=== PATIENT | female | born 1960 | race American Indian/Alaskan Native ===

== ENCOUNTER 2016-06-22 11:22 | Emergency (ER) | payer MEDICARE, BC ==
[2016-06-22] MEDS ORDERED: CATAPRES PO ONE (14:33)
--- NOTE | 2016-06-22 15:13 | Cat Scan Report ---
FINAL REPORT PROCEDURE: CT HEAD/BRAIN WO CON TECHNIQUE: Computerized tomography of the head was performed without contrast material. HISTORY: headache, high blood pressure COMPARISON: No prior studies are available for comparison. FINDINGS: Visualized portions of the paranasal sinuses and mastoid air cells are clear. No calvarial fracture is seen. Cerebral ventricles are normal in size. No acute intracranial hemorrhage or mass effect is seen. No CVA is seen. IMPRESSION: No abnormalities are seen.
--- NOTE | 2016-06-22 16:05 | Emergency Department Report ---
HPI - General Chief Complaint: High BP Time Seen by Provider: 06/22/16 13:10 - HPI HPI: 56-year-old female presents today with elevated blood pressure level and associated headache. Patient states that the she's had had a headache times one week which worsened today. Positive for gradual onsets. Patient states that she has been out of her blood pressure medication for 1.5 weeks. Patient is currently taking losartan potassium 100 mg daily. Denies vision change, fever, chills, nausea, vomiting, chest pain, shortness of breath, abdominal pain. ED Past Medical Hx - Past Medical History Hx Hypertension: Yes - Surgical History Hx Cholecystectomy: Yes Additional Surgical History: HYSTERECTOMY / RIGHT ROTATOR CUFF - Social History Smoking Status: Never Smoker Substance Use Type: None - Medications Home Medications: Home Medications Medication Instructions Recorded Confirmed Last Taken Type HYDROcodone/APAP 5-325 [[place] 1 each PO Q6HR PRN #15 tablet 04/18/16 Unknown Rx 5/325] Losartan [Cozaar] 100 mg PO QDAY #30 tablet 06/22/16 Unknown Rx ED Review of Systems ROS: Stated complaint: HBP Other details as noted in HPI Constitutional: denies: chills, fever, malaise Eyes: denies: eye pain ENT: denies: ear pain, throat pain, congestion Respiratory: denies: cough, shortness of breath, wheezing Cardiovascular: denies: chest pain, palpitations Endocrine: no symptoms reported Gastrointestinal: denies: abdominal pain, nausea, vomiting Neurological: headache. denies: weakness Physical Exam - Physical Exam Vital Signs: Vital Signs 06/22/16 06/22/16 06/22/16 11:27 14:25 14:54 Temperature 99.0 F 98.7 F Pulse Rate 109 H 70 88 Respiratory 20 18 Rate Blood Pressure 177/103 169/121 Blood Pressure 169/121 [Right] O2 Sat by Pulse 100 99 Oximetry Physical Exam: GENERAL: The patient is well-developed and well-nourished. Patient is in NAD. HEAD: Normocephalic. Atraumatic. CHEST/LUNGS: Clear to auscultation throughout. HEART/CARDIOVASCULAR: Regular rate and rhythm. No murmurs, rubs or gallops. ABDOMEN: Abdomen is soft, nontender. Bowel sounds normoactive. No guarding or rebound tenderness. EXTREMITIES: Peripheral pulses intact. Capillary refill less than 2 seconds. NEURO: Alert and oriented 3, fluid speech, EOMs intact, normal facial sensation , strength exam 5/5 upper and lower extremities, GCS equals 15, finger to nose normal ED Course Vital Signs 06/22/16 06/22/16 06/22/16 11:27 14:25 14:54 Temperature 99.0 F 98.7 F Pulse Rate 109 H 70 88 Respiratory 20 18 Rate Blood Pressure 177/103 169/121 Blood Pressure 169/121 [Right] O2 Sat by Pulse 100 99 Oximetry ED Medical Decision Making - Lab Data Vital Signs 06/22/16 06/22/16 06/22/16 11:27 14:25 14:54 Temperature 99.0 F 98.7 F Pulse Rate 109 H 70 88 Respiratory 20 18 Rate Blood Pressure 177/103 169/121 Blood Pressure [Left] Blood Pressure 169/121 [Right] O2 Sat by Pulse 100 99 Oximetry 06/22/16 16:17 Temperature 98.7 F Pulse Rate 83 Respiratory 16 Rate Blood Pressure Blood Pressure 143/90 [Left] Blood Pressure [Right] O2 Sat by Pulse 96 Oximetry - Radiology Data Radiology results: report reviewed CT of head without contrast: Visualized portions of the paranasal sinuses and mastoid S also clear. No calvarial fracture is seen. Cerebral ventricles are normal in size. No acute intracranial hemorrhage or mass effect is seen. No CVA seen. - Medical Decision Making 56-year-old female presents today with elevated blood pressure levels and associated headache. Patient was given clonidine 0.2 mg and reported symptomatic relief. Her CT results are within normal limits. Patient is in no acute distress at this time. She will be discharged home and is encouraged to follow up with a primary care provider. She will be sent home on losartan and is encouraged to return to the emergency room for any worsening symptoms. Critical care attestation.: If time is entered above; I have spent that time in minutes in the direct care of this critically ill patient, excluding procedure time. ED Disposition Clinical Impression: HTN (hypertension) Qualifiers: Hypertension type: essential hypertension Qualified Code(s): I10 - Essential ( primary) hypertension Headache Qualifiers: Headache type: unspecified Headache chronicity pattern: acute headache Intractability: not intractable Qualified Code(s): R51 - Headache Disposition: DISCHARGED TO HOME OR SELFCARE Is pt being admited?: No Does the pt Need Aspirin: No Condition: Stable Instructions: Hypertension (ED), Acute Headache (ED) Additional Instructions: Follow-up with primary care provider. Return to the emergency department if symptoms worsen. Prescriptions: Losartan [Cozaar] 100 mg PO QDAY #30 tablet Referrals: PRIMARY CARE, [Primary Care Provider] - 3-5 Days [facility] [Outside] - 3-5 Days Forms: Work/School Release Form(ED) Time of Disposition: 16:21
[2016-06-22 16:18] VITALS: BP 143/90
== END 2016-06-22 16:30 | disposition home or self-care (01) ==
LOC: ED 11:22
DX: I10 Essential (primary) hypertension (principal); R51 Headache; Z90.49 Acquired absence of other specified parts of digestive tract; Z90.710 Acquired absence of both cervix and uterus
CPT/HCPCS: 70450

== ENCOUNTER 2017-07-31 15:51 | Inpatient (IN) | payer BC, MEDICARE ==
[2017-07-31 16:46] LABS: Basophils # (Auto) 0.1 K/mm3 (0.0-0.1); Basophils % (Auto) 0.5 % (0.0-1.8); Hematocrit 43.1 % (30.3-42.9); Hemoglobin 14.2 gm/dl (10.1-14.3); Lymphocytes # (Auto) 1.9 K/mm3 (1.2-5.4); Lymphocytes % (Auto) 15.1 % (13.4-35.0); Mean Corpuscular HGB Conc 33 % (30-34); Mean Corpuscular Hemoglobin 28 pg (28-32); Mean Corpuscular Volume 84 fl (79-97); Monocytes # (Auto) 0.3 K/mm3 (0.0-0.8); Monocytes % (Auto) 2.2 % (0.0-7.3); Platelet Count 472 K/mm3 (140-440); Red Blood Count 5.15 M/mm3 (3.65-5.03); Red Cell Distribution Width 15.3 % (13.2-15.2)
[2017-07-31 17:05] LABS: Alanine Aminotransferase 8 units/L (7-56); Albumin 4.2 g/dL (3.9-5); BUN/Creatinine Ratio 10; Blood Urea Nitrogen 8 mg/dL (7-17); Calcium 10.1 mg/dL (8.4-10.2); Hemolysis Index 14; Lipase 15 units/L (13-60)
[2017-07-31] MEDS ORDERED: ZOFRAN IV ONE ×2 (17:37→21:24)
[2017-07-31] MEDS ORDERED: DILAUDID IV ONE ×2 (17:37→20:22)
[2017-07-31] MEDS ORDERED: NACL 0.9% 1000 ML 1,000 ML IV ONE ×2 (17:37→17:38)
--- NOTE | 2017-07-31 18:31 | Emergency Department Report ---
ED Abdominal Pain HPI - General Chief Complaint: Abdominal Pain Stated Complaint: NAUSEA/VOMITING/DIARRHEA Time Seen by Provider: 07/31/17 17:32 Source: patient Mode of arrival: Wheelchair Limitations: No Limitations - History of Present Illness Initial Comments: 57-year-old female with a past medical history hypertension, Crohn's disease, previous hysterectomy and cholecystectomy presents to the hospital with complaints of abdominal pain, nausea, and diarrhea that started about 5 AM this morning. Patient's complains of severe generalized cramping abdominal pain is with palpation. No alleviating factors. Approximately 6-7 episodes of vomiting and 12 episodes of diarrhea reported since symptom onset. The patient denies melena, hematochezia, hematemesis, melena, recent travel, sick contacts, or recent antibiotic use. She is not taking any Crohn specific medication. Patient has had several hospitalizations for Crohn's disease and did follow-up with the GI doctor one time. Pt's GI evaluation was 2 years ago status post colonoscopy the patient did not follow-up nor was she contacted regarding results to her understanding she thinks results were "okay". Severity scale (0 -10): 10 - Related Data Previous Rx's Medication Instructions Recorded Last Taken Type HYDROcodone/APAP 5-325 [[place] 1 each PO Q6HR PRN #15 tablet 04/18/16 Unknown Rx 5/325] Losartan [Cozaar] 100 mg PO QDAY #30 tablet 06/22/16 Unknown Rx Allergies Allergy/AdvReac Type Severity Reaction Status Date / Time acetaminophen [From Lortab] Allergy Vomiting Verified 06/22/16 11:27 hydrocodone bitartrate Allergy Vomiting Verified 06/22/16 11:27 [From Lortab] tramadol Allergy Shortness Verified 06/22/16 11:27 of Breath ED Review of Systems ROS: Stated complaint: NAUSEA/VOMITING/DIARRHEA Other details as noted in HPI Comment: All other systems reviewed and negative Other: Constitutional: No fevers chills or weight loss Eyes: No eye pain visual changes or discharge ENT: No ear pain or throat pain Neck: Denies pain Respiratory: Denies cough wheezing shortness of breath Cardiovascular: Denies chest pain, palpitations, syncope GI: As per HPI : Denies dysuria Musculoskeletal: Denies back pain, joint swelling Skin: Denies rash, lesions, erythema Neurologic: Denies headache, numbness, weakness Psychiatric: Denies suicidal ideation, hallucinations ED Past Medical Hx - Past Medical History Hx Hypertension: Yes Additional medical history: CHRON'S - Surgical History Hx Cholecystectomy: Yes Additional Surgical History: HYSTERECTOMY / RIGHT ROTATOR CUFF - Social History Smoking Status: Never Smoker Substance Use Type: None - Medications Home Medications: Home Medications Medication Instructions Recorded Confirmed Last Taken Type HYDROcodone/APAP 5-325 [[place] 1 each PO Q6HR PRN #15 tablet 04/18/16 Unknown Rx 5/325] Losartan [Cozaar] 100 mg PO QDAY #30 tablet 06/22/16 Unknown Rx ED Physical Exam - General Limitations: No Limitations - Other Other exam information: General: No limitations, mild distress secondary to pain Head exam: Atraumatic, normocephalic Eyes exam: Normal appearance, nonicteric sclera ENT: Moist mucous membrane, normal oropharynx Neck exam: Normal inspection, full range of motion, no meningismus nontender Respiratory exam: Clear to auscultation bilateral, no wheezes, rales, crackles Cardiovascular: Tachycardic regular rhythm Abdomen: Soft, nondistended, generalized abdominal tenderness, no bowel sounds, no rebound or guarding Extremity: Full range of motion normal inspection no deformity Back: Normal Inspection, full range of motion, no tenderness Neurologic: Alert, oriented x3, cranial nerves intact, no motor or sensory deficit Psychiatric: normal affect, normal mood Skin: Warm, dry, intact ED Course Vital Signs 07/31/17 07/31/17 16:27 20:22 Temperature 98.5 F Pulse Rate 126 H 89 Respiratory 20 20 Rate Blood Pressure 144/103 Blood Pressure 168/91 [Left] O2 Sat by Pulse 99 100 Oximetry - Reevaluation(s) Reevaluation #1: 07/31/17 18:[address] at this time 07/31/17 20:59 Pain improving after second dose of Dilaudid - Consultations Consultation #1: 07/31/17 20:[address] Parks (GI) he recommend Cipro, Flagyl, Solu-Medrol, and omeprazole (PPI). will consult ED Medical Decision Making - Lab Data Result diagrams: 07/31/17 16:34 07/31/17 16:34 Lab Results 07/31/17 07/31/17 Range/Units 16:34 16:34 WBC 12.8 H (4.5-11.0) K/mm3 RBC 5.15 H (3.65-5.03) M/mm3 Hgb 14.2 (10.1-14.3) gm/dl Hct 43.1 H (30.3-42.9) % MCV 84 (79-97) fl MCH 28 (28-32) pg MCHC 33 (30-34) % RDW 15.3 H (13.2-15.2) % Plt Count 472 H (140-440) K/mm3 Lymph % (Auto) 15.1 (13.4-35.0) % [place] % (Auto) 2.2 (0.0-7.3) % Eos % (Auto) 0.0 (0.0-4.3) % Baso % (Auto) 0.5 (0.0-1.8) % Lymph # 1.9 (1.2-5.4) K/mm3 [place] # 0.3 (0.0-0.8) K/mm3 Eos # 0.0 (0.0-0.4) K/mm3 Baso # 0.1 (0.0-0.1) K/mm3 Seg Neutrophils % 82.2 H (40.0-70.0) % Seg Neutrophils # 10.5 H (1.8-7.7) K/mm3 Sodium 141 (137-145) mmol/L Potassium 3.8 (3.6-5.0) mmol/L Chloride 100.7 (98-107) mmol/L Carbon Dioxide 23 (22-30) mmol/L Anion Gap 21 mmol/L BUN 8 (7-17) mg/dL Creatinine 0.8 (0.7-1.2) mg/dL Estimated GFR > 60 ml/min BUN/Creatinine Ratio 10 % Glucose 122 H (65-100) mg/dL Calcium 10.1 (8.4-10.2) mg/dL Total Bilirubin 0.30 (0.1-1.2) mg/dL AST 12 (5-40) units/L ALT 8 (7-56) units/L Alkaline Phosphatase 101 (35-129) units/L Total Protein 8.3 H (6.3-8.2) g/dL Albumin 4.2 (3.9-5) g/dL Albumin/Globulin Ratio 1.0 % Lipase 15 (13-60) units/L - Radiology Data Radiology results: report reviewed CT abdomen and pelvis IV contrast: Diffuse wall thickening of the distal half of small bowel and ascending colon as well as the distal stomach in the region of the pylorus. Findings likely consistent with known history of Crohn's disease - Medical Decision Making Patient likely had a Crohn's exacerbation as well as gastroenteritis. Case discussed with GI care coordination manager. Meds ordered as recommended. Stool culture is ordered and pending as recommended. He is a patient has not had a GI evaluation at least 2 years is not currently on any specific Crohn's related medication. Patient will be admitted for stabilization of symptoms and GI evaluation. Tachycardia improved with decreased pain and IV fluids - Differential Diagnosis Crohn's flare, gastroenteritis, pancreatitis, hepatitis, obstruction Critical Care Time: No Critical care attestation.: If time is entered above; I have spent that time in minutes in the direct care of this critically ill patient, excluding procedure time. ED Disposition Clinical Impression: Exacerbation of Crohn's disease, Gastroenteritis Disposition: OP ADMIT IP TO THIS HOSP Is pt being admited?: Yes Condition: Stable Time of Disposition: 21:02 (Hospitalist/Mariela)
--- NOTE | 2017-07-31 20:24 | Cat Scan Report ---
FINAL REPORT EXAM: CT ABDOMEN PELVIS W CON HISTORY: n,v,d Crohn's TECHNIQUE: Standard enhanced CT of the abdomen and pelvis. Coronal and sagittal reconstruction was also performed. Delayed imaging through the kidneys and bladder was obtained. Contrast: Intravenous contrast given PRIORS: None. FINDINGS: There is diffuse wall thickening of the distal half of the small bowel as well as the ascending colon. Minimal stranding in the adjacent fat is seen. There is also a small amount of wall thickening of the distal stomach in the region of the pylorus. However, there are small areas of low-density ascites interspersed among small bowel loops and around the liver and dependent pelvis. These findings are likely consistent with the patient's known history of Crohn's disease. Within the abdomen, the liver, spleen, pancreas, adrenal glands, and kidneys are unremarkable. Gallbladder has been surgically removed. No evidence for retroperitoneal or pelvic lymphadenopathy is seen. No soft tissue mass, the loculated fluid collection, or free air is seen within the abdomen or pelvis. The appendix is normal. Within the pelvis, the bladder is unremarkable. The uterus has been surgically removed. No evidence for mass or lymphadenopathy is seen in the pelvis. Images through the upper abdomen include the lung bases which are expanded and clear. Bony structures show no focal abnormalities and are intact. IMPRESSION: 1. Diffuse wall thickening of the distal half of the small bowel and ascending colon as well as the distal stomach in the region of the pylorus. Findings are likely consistent with the known history of Crohn's disease.
[2017-07-31] MEDS ORDERED: LEVAQUIN 750MG/150ML 750 MG/150 ML BAG IV ONE (20:52)
[2017-07-31] MEDS ORDERED: PROTONIX IV ONE (20:53)
[2017-07-31] MEDS ORDERED: FLAGYL 500 MG/100 ML 500 MG/100 ML BAG IV SCH (21:00)
[2017-07-31] MEDS ORDERED: ZOFRAN ONE (21:24)
[2017-07-31] MEDS: DILAUDID IV PRN (23:21)
[2017-07-31] MEDS: NACL 0.9% 1000 ML 1,000 ML IV SCH (23:21)
[2017-08-01] MEDS: DILAUDID IV PRN ×5 (04:03→20:54)
[2017-08-01] MEDS: ZOFRAN IV PRN ×3 (04:03→17:43)
[2017-08-01] MEDS: FLAGYL 500 MG/100 ML 500 MG/100 ML BAG IV SCH ×3 (06:46→21:02)
[2017-08-01] MEDS: LEVAQUIN 750MG/150ML 750 MG/150 ML BAG IV SCH (09:40)
[2017-08-01] MEDS: COZAAR PO SCH (09:41)
[2017-08-01] MEDS: PEPCID IV SCH ×2 (09:41→21:01)
[2017-08-01] MEDS: NACL 0.9% 1000 ML 1,000 ML IV SCH ×2 (09:42→20:04)
[2017-08-01 09:50] LABS: Bilirubin,Urine NEG (Negative); Blood,Urine SM (Negative); Color,Urine Yellow (Yellow); Mucus,Urine 3+ /HPF; Protein,Urine <15 mg/dL mg/dL (Negative); Urobilinogen,Urine < 2.0 mg/dL (<2.0)
[2017-08-01] MEDS ORDERED: PROTONIX IV SCH (10:00)
[2017-08-01] MEDS ORDERED: NON-FORMULARY (Losartan [Cozaar] 100 MG) PO SCH (10:00)
--- NOTE | 2017-08-01 10:56 | Progress Note ---
Assessment and Plan Assessment and plan: Crohn's exacerbation. CT scan of the abdomen reveals diffuse wall thickening of the distal half of the small bowel and ascending colon as well as the distal stomach in the region of the pylorus. Findings are consistent with Crohn's disease. Continue with steroids. GI consultation pending. Abdominal pain. Etiology secondary to above. Gastroenteritis. Continue antibiotics. Sepsis. Present on admission. Etiology secondary to above. Follow culture results. Hypertension. Resume anti-hypertensive medications. History Interval history: Patient complains of epigastric discomfort. Diarrhea and vomiting have resolved. Hospitalist Physical - Constitutional Vitals: Temp Pulse Resp BP Pulse Ox 98.6 F 82 18 140/80 100 08/01/17 00:39 08/01/17 09:41 08/01/17 08:50 08/01/17 09:41 08/01/17 00:39 General appearance: Present: no acute distress, well-nourished - EENT Eyes: Present: PERRL, EOM intact ENT: hearing intact, clear oral mucosa, dentition normal - Neck Neck: Present: supple, normal ROM - Respiratory Respiratory effort: normal Respiratory: bilateral: CTA - Cardiovascular Rhythm: regular Heart Sounds: Present: S1 & S2. Absent: gallop, rub - Extremities Extremities: no ischemia, No edema, Full ROM - Abdominal General gastrointestinal: soft, tender, non-distended, normal bowel sounds Localized gastrointestinal: tender: epigastric periumbilical (mild) - Integumentary Integumentary: Present: clear, warm, dry - Neurologic Neurologic: CNII-XII intact, moves all extremities Results - Labs CBC & Chem 7: 07/31/17 16:34 07/31/17 16:34 Labs: Laboratory Last Values WBC 12.8 K/mm3 (4.5-11.0) H 07/31/17 16:34 RBC 5.15 M/mm3 (3.65-5.03) H 07/31/17 16:34 Hgb 14.2 gm/dl (10.1-14.3) 07/31/17 16:34 Hct 43.1 % (30.3-42.9) H 07/31/17 16:34 MCV 84 fl (79-97) 07/31/17 16:34 MCH 28 pg (28-32) 07/31/17 16:34 MCHC 33 % (30-34) 07/31/17 16:34 RDW 15.3 % (13.2-15.2) H 07/31/17 16:34 Plt Count 472 K/mm3 (140-440) H 07/31/17 16:34 Lymph % (Auto) 15.1 % (13.4-35.0) 07/31/17 16:34 [place] % (Auto) 2.2 % (0.0-7.3) 07/31/17 16:34 Eos % (Auto) 0.0 % (0.0-4.3) 07/31/17 16:34 Baso % (Auto) 0.5 % (0.0-1.8) 07/31/17 16:34 Lymph # 1.9 K/mm3 (1.2-5.4) 07/31/17 16:34 [place] # 0.3 K/mm3 (0.0-0.8) 07/31/17 16:34 Eos # 0.0 K/mm3 (0.0-0.4) 07/31/17 16:34 Baso # 0.1 K/mm3 (0.0-0.1) 07/31/17 16:34 Seg Neutrophils % 82.2 % (40.0-70.0) H 07/31/17 16:34 Seg Neutrophils # 10.5 K/mm3 (1.8-7.7) H 07/31/17 16:34 Sodium 141 mmol/L (137-145) 07/31/17 16:34 Potassium 3.8 mmol/L (3.6-5.0) 07/31/17 16:34 Chloride 100.7 mmol/L (98-107) 07/31/17 16:34 Carbon Dioxide 23 mmol/L (22-30) 07/31/17 16:34 Anion Gap 21 mmol/L 07/31/17 16:34 BUN 8 mg/dL (7-17) 07/31/17 16:34 Creatinine 0.8 mg/dL (0.7-1.2) 07/31/17 16:34 Estimated GFR > 60 ml/min 07/31/17 16:34 BUN/Creatinine Ratio 10 % 07/31/17 16:34 Glucose 122 mg/dL (65-100) H 07/31/17 16:34 Calcium 10.1 mg/dL (8.4-10.2) 07/31/17 16:34 Total Bilirubin 0.30 mg/dL (0.1-1.2) 07/31/17 16:34 AST 12 units/L (5-40) 07/31/17 16:34 ALT 8 units/L (7-56) 07/31/17 16:34 Alkaline Phosphatase 101 units/L (35-129) 07/31/17 16:34 Total Protein 8.3 g/dL (6.3-8.2) H 07/31/17 16:34 Albumin 4.2 g/dL (3.9-5) 07/31/17 16:34 Albumin/Globulin Ratio 1.0 % 07/31/17 16:34 Lipase 15 units/L (13-60) 07/31/17 16:34 Urine Color Yellow (Yellow) 08/01/17 09:33 Urine Turbidity Clear (Clear) 08/01/17 09:33 Urine pH 5.0 (5.0-7.0) 08/01/17 09:33 Ur Specific [place] 1.060 (1.003-1.030) H 08/01/17 09:33 Urine Protein <15 mg/dl mg/dL (Negative) 08/01/17 09:33 Urine Glucose (UA) Neg mg/dL (Negative) 08/01/17 09:33 Urine Ketones Neg mg/dL (Negative) 08/01/17 09:33 Urine Blood Sm (Negative) 08/01/17 09:33 Urine Nitrite Neg (Negative) 08/01/17 09:33 Urine Bilirubin Neg (Negative) 08/01/17 09:33 Urine Urobilinogen < 2.0 mg/dL (<2.0) 08/01/17 09:33 Ur Leukocyte Esterase Neg (Negative) 08/01/17 09:33 Urine WBC (Auto) 1.0 /HPF (0.0-6.0) 08/01/17 09:33 Urine RBC (Auto) 3.0 /HPF (0.0-6.0) 08/01/17 09:33 U Epithel Cells (Auto) 5.0 /HPF (0-13.0) 08/01/17 09:33 Urine Mucus 3+ /HPF 08/01/17 09:33
[2017-08-01] MEDS ORDERED: Fluarix Quad 2017-2018(36 MOS+ IM ONE (12:00)
--- NOTE | 2017-08-01 16:53 | Consultation ---
History of Present Illness - Reason for Consult Consult date: 08/01/17 enteritis - History of Present Illness See Dictated note. Medications and Allergies Allergies Allergy/AdvReac Type Severity Reaction Status Date / Time acetaminophen [From Lortab] Allergy Vomiting Verified 06/22/16 11:27 hydrocodone bitartrate Allergy Vomiting Verified 06/22/16 11:27 [From Lortab] tramadol Allergy Shortness Verified 06/22/16 11:27 of Breath Home Medications Medication Instructions Recorded Confirmed Last Taken Type HYDROcodone/APAP 5-325 [[place] 1 each PO Q6HR PRN #15 tablet 04/18/16 Unknown Rx 5/325] Losartan [Cozaar] 100 mg PO QDAY #30 tablet 06/22/16 08/01/17 07/30/17 07:00 Rx 100 Active Meds: Active Medications Famotidine (Pepcid) 20 mg IV BID [facility] Last Admin: 08/01/17 09:41 Dose: 20 mg Hydromorphone HCl (Dilaudid) 1 mg IV Q4H PRN PRN Reason: Pain , Severe (7-10) Last Admin: 08/01/17 16:43 Dose: 1 mg Levofloxacin/Dextrose (Levaquin 750mg/150ml) 750 mg in 150 mls @ 100 mls/hr IV DAILY [facility] Last Admin: 08/01/17 09:40 Dose: 100 mls/hr Metronidazole (Flagyl 500 Mg/100 Ml) 500 mg in 100 mls @ 100 mls/hr IV Q8HR [facility] Last Admin: 08/01/17 14:14 Dose: 100 mls/hr Sodium Chloride (Nacl 0.9% 1000 Ml) 1,000 mls @ 125 mls/hr IV DIRECT [facility] Last Admin: 08/01/17 09:42 Dose: 125 mls/hr Losartan Potassium (Cozaar) 100 mg PO QDAY [facility] Last Admin: 08/01/17 09:41 Dose: 100 mg Methylprednisolone Sodium Succinate (Solu-Medrol) 60 mg IV Q6H [facility] Last Admin: 08/01/17 09:40 Dose: 60 mg Ondansetron HCl (Zofran) 4 mg IV Q6H PRN PRN Reason: Nausea And Vomiting Last Admin: 08/01/17 10:27 Dose: 4 mg Exam - Constitutional Vitals: Temp Pulse Resp BP Pulse Ox 98.6 F 82 18 140/80 100 08/01/17 00:39 08/01/17 09:41 08/01/17 16:43 08/01/17 09:41 08/01/17 00:39 Results - Labs CBC & Chem 7: 07/31/17 16:34 07/31/17 16:34 Labs: Abnormal lab results 07/31/17 08/01/17 Range/Units 16:34 09:33 Glucose 122 H (65-100) mg/dL Total Protein 8.3 H (6.3-8.2) g/dL Ur Specific [place] 1.060 H (1.003-1.030) Assessment and Plan Pt with acute onset N/V/D, and abnormal CT. No clear hx of IBD. Labs essentially normal, with no anemia. Imp - Infectious process Rec - check stool studies, empiric abx, and discharge when stable, with outpatient follow up.
--- NOTE | 2017-08-01 21:37 | Consultation ---
REFERRING PHYSICIAN: Adam Araiza MD. REASON FOR CONSULTATION: Enteritis. HISTORY OF PRESENT ILLNESS: The patient is a 57-year-old woman who is retired early from the [employer] after a shoulder surgery. She was in her usual state of health until yesterday morning when she developed acute onset of nausea, vomiting and diarrhea. She had multiple loose watery bowel movements with no blood. Because of these symptoms that persisted, she presented to the Emergency Room. Here, she had a CT scan which showed thickening of the distal half of her small bowel as well as thickening of the ascending colon. Because of this, she was admitted for further evaluation. She has ongoing intermittent abdominal pain for which she is taking pain meds on a regular basis in the hospital. She denies GI bleeding. There have been no fevers, chills, or sweats. Prior to this, the patient states she did have some sort of colitis or GI problem in 2014. I was able to get data from 05/26/2014 from our records, where we have a biopsy results on an upper and lower endoscopy, which showed acute colitis. She was then seen in the office by Dr. Siddiqui; and on 01/15/2015, she underwent repeat colonoscopy for chronic diarrhea. This was normal to the terminal ileum, with normal biopsies as well. She was not seen in followup since then. We also have records from 1997 and 2000, where the patient was complaining of GERD. The patient states that she has 2-3 bowel movements a day and has urgency to the point of incontinence occurring about twice a month. She states that she has lost 60 or more pounds over the last year. This has been involuntary. However, usually she does not have problems with abdominal pain, nausea or vomiting. There has been no GI bleeding. PAST MEDICAL HISTORY: ALLERGIES: She is allergic to TRAMADOL AND HYDROCODONE. MEDICATIONS: She is at home on losartan and [place]. PAST MEDICAL HISTORY: She has a history of, 1. Hypertension. 2. Shoulder surgery. 3. Cholecystectomy. 4. Hysterectomy. FAMILY HISTORY: Noncontributory. SOCIAL HISTORY: Negative for tobacco or ethanol usage. REVIEW OF SYSTEMS: Negative except as noted above. PHYSICAL EXAMINATION: VITAL SIGNS: Temperature is 98.6 and her pulse is 82, blood pressure 140/80. HEENT: She is anicteric. Pupils are round and reactive. Oropharynx is clear. LUNGS: Clear bilaterally to auscultation. CARDIOVASCULAR: Regular with no extra heart sounds. ABDOMEN: Soft with good bowel sounds and no organomegaly or significant tenderness to deep palpation. RECTAL: Deferred. EXTREMITIES: Reveal no edema. LABORATORY DATA: White count is 12.8, hemoglobin 14.2, hematocrit 43.1, MCV of 84, platelet count of 472,000. Sodium 141, potassium 3.8, chloride 101, bicarbonate 23, BUN 8, creatinine 0.8, glucose 122, AST is 12, ALT is 8, alkaline phosphatase is 101, total bilirubin is 0.3, albumin is 4.2. IMAGING DATA: CT is as noted in history of present illness. There is minimal stranding noted in the adjacent fat to the wall thickened areas of the intestine. Also, there is some thickening of the distal stomach in the region of the pylorus. The wall thickening is diffuse. IMPRESSION: 1. Abdominal pain, nausea, vomiting, diarrhea -- these symptoms are most consistent with an acute infectious process. I would treat her empirically with antibiotics and check stool studies. I do not believe these findings are necessarily consistent with inflammatory bowel disease given the acuity of onset. 2. Abnormal CT scan -- this may be an acute infectious process versus a more chronic process such as an infiltrative disease or inflammation. Inflammatory bowel disease is certainly a consideration, but the patient's history is not necessarily consistent with this. I would treat her empirically with antibiotics, and do followup imaging after several weeks to allow resolution of any acute process. Subsequently, evaluation with either endoscopy or other modalities would be appropriate to further elucidate the disease process. 3. Chronic diarrhea -- I suspect that the patient has bile salt mediated diarrhea since her bowel movement changes started after her gallbladder surgery. After the inflammatory or infectious process has been evaluated, a trial of Questran or Welchol would be appropriate. JOB# [id number] HRC/NTS
[2017-08-02] MEDS: DILAUDID IV PRN ×6 (00:38→21:51)
[2017-08-02] MEDS: ZOFRAN IV PRN ×3 (00:39→21:07)
[2017-08-02] MEDS: NACL 0.9% 1000 ML 1,000 ML IV SCH ×2 (04:59→15:29)
[2017-08-02] MEDS: FLAGYL 500 MG/100 ML 500 MG/100 ML BAG IV SCH ×3 (05:00→21:15)
[2017-08-02] MEDS: PEPCID IV SCH ×2 (09:11→21:15)
[2017-08-02] MEDS: LEVAQUIN 750MG/150ML 750 MG/150 ML BAG IV SCH (09:12)
[2017-08-02] MEDS: COZAAR PO SCH (09:13)
--- NOTE | 2017-08-02 10:24 | Progress Note ---
Assessment and Plan Assessment and plan: Gastroenteritis. Continue antibiotics. GI following. Follow up stool studies. Crohn's disease. Continue IV steroids for potential acute flare/exacerbation. Sepsis. Present on admission. Etiology secondary to above. Follow culture results. Hypertension. Continue anti-hypertensive medications. History Interval history: Patient reports her abdominal discomfort has improved. No nausea or vomiting. Hospitalist Physical - Constitutional Vitals: Temp Pulse Resp BP Pulse Ox 98.2 F 77 18 171/96 100 08/02/17 08:01 08/02/17 08:01 08/02/17 08:01 08/02/17 09:13 08/02/17 08:01 General appearance: Present: no acute distress, well-nourished - EENT Eyes: Present: PERRL, EOM intact ENT: hearing intact, clear oral mucosa, dentition normal - Neck Neck: Present: supple, normal ROM - Respiratory Respiratory effort: normal Respiratory: bilateral: CTA - Cardiovascular Rhythm: regular Heart Sounds: Present: S1 & S2. Absent: gallop, rub - Extremities Extremities: no ischemia, No edema, Full ROM - Abdominal General gastrointestinal: soft, non-tender, non-distended, normal bowel sounds - Integumentary Integumentary: Present: clear, warm, dry - Neurologic Neurologic: CNII-XII intact, moves all extremities Results - Labs CBC & Chem 7: 07/31/17 16:34 07/31/17 16:34 Labs: Laboratory Last Values WBC 12.8 K/mm3 (4.5-11.0) H 07/31/17 16:34 RBC 5.15 M/mm3 (3.65-5.03) H 07/31/17 16:34 Hgb 14.2 gm/dl (10.1-14.3) 07/31/17 16:34 Hct 43.1 % (30.3-42.9) H 07/31/17 16:34 MCV 84 fl (79-97) 07/31/17 16:34 MCH 28 pg (28-32) 07/31/17 16:34 MCHC 33 % (30-34) 07/31/17 16:34 RDW 15.3 % (13.2-15.2) H 07/31/17 16:34 Plt Count 472 K/mm3 (140-440) H 07/31/17 16:34 Lymph % (Auto) 15.1 % (13.4-35.0) 07/31/17 16:34 [place] % (Auto) 2.2 % (0.0-7.3) 07/31/17 16:34 Eos % (Auto) 0.0 % (0.0-4.3) 07/31/17 16:34 Baso % (Auto) 0.5 % (0.0-1.8) 07/31/17 16:34 Lymph # 1.9 K/mm3 (1.2-5.4) 07/31/17 16:34 [place] # 0.3 K/mm3 (0.0-0.8) 07/31/17 16:34 Eos # 0.0 K/mm3 (0.0-0.4) 07/31/17 16:34 Baso # 0.1 K/mm3 (0.0-0.1) 07/31/17 16:34 Seg Neutrophils % 82.2 % (40.0-70.0) H 07/31/17 16:34 Seg Neutrophils # 10.5 K/mm3 (1.8-7.7) H 07/31/17 16:34 Sodium 141 mmol/L (137-145) 07/31/17 16:34 Potassium 3.8 mmol/L (3.6-5.0) 07/31/17 16:34 Chloride 100.7 mmol/L (98-107) 07/31/17 16:34 Carbon Dioxide 23 mmol/L (22-30) 07/31/17 16:34 Anion Gap 21 mmol/L 07/31/17 16:34 BUN 8 mg/dL (7-17) 07/31/17 16:34 Creatinine 0.8 mg/dL (0.7-1.2) 07/31/17 16:34 Estimated GFR > 60 ml/min 07/31/17 16:34 BUN/Creatinine Ratio 10 % 07/31/17 16:34 Glucose 122 mg/dL (65-100) H 07/31/17 16:34 Calcium 10.1 mg/dL (8.4-10.2) 07/31/17 16:34 Total Bilirubin 0.30 mg/dL (0.1-1.2) 07/31/17 16:34 AST 12 units/L (5-40) 07/31/17 16:34 ALT 8 units/L (7-56) 07/31/17 16:34 Alkaline Phosphatase 101 units/L (35-129) 07/31/17 16:34 Total Protein 8.3 g/dL (6.3-8.2) H 07/31/17 16:34 Albumin 4.2 g/dL (3.9-5) 07/31/17 16:34 Albumin/Globulin Ratio 1.0 % 07/31/17 16:34 Lipase 15 units/L (13-60) 07/31/17 16:34 Urine Color Yellow (Yellow) 08/01/17 09:33 Urine Turbidity Clear (Clear) 08/01/17 09:33 Urine pH 5.0 (5.0-7.0) 08/01/17 09:33 Ur Specific [place] 1.060 (1.003-1.030) H 08/01/17 09:33 Urine Protein <15 mg/dl mg/dL (Negative) 08/01/17 09:33 Urine Glucose (UA) Neg mg/dL (Negative) 08/01/17 09:33 Urine Ketones Neg mg/dL (Negative) 08/01/17 09:33 Urine Blood Sm (Negative) 08/01/17 09:33 Urine Nitrite Neg (Negative) 08/01/17 09:33 Urine Bilirubin Neg (Negative) 08/01/17 09:33 Urine Urobilinogen < 2.0 mg/dL (<2.0) 08/01/17 09:33 Ur Leukocyte Esterase Neg (Negative) 08/01/17 09:33 Urine WBC (Auto) 1.0 /HPF (0.0-6.0) 08/01/17 09:33 Urine RBC (Auto) 3.0 /HPF (0.0-6.0) 08/01/17 09:33 U Epithel Cells (Auto) 5.0 /HPF (0-13.0) 08/01/17 09:33 Urine Mucus 3+ /HPF 08/01/17 09:33
--- NOTE | 2017-08-02 16:26 | Progress Note ---
Assessment and Plan Pt with acute onset N/V/D, and abnormal CT. No clear hx of IBD. Labs essentially normal, with no anemia. Symptoms improving, but still ongoing. Doubt Crohn's. Imp - Infectious process, r/o IBD Rec - check stool studies, empiric abx - Will do EGD tomorrow given ongoing nausea, and abnormal stomach on CT. Subjective Date of service: 08/02/17 Interval history: Pt feels better. Still has nausea with po intake. Objective - Constitutional Vitals: Vital Signs - 12hr 08/02/17 08/02/17 08/02/17 04:52 05:22 08:01 Temperature 98.2 F Pulse Rate 77 Respiratory 18 18 18 Rate Blood Pressure 171/96 O2 Sat by Pulse 100 Oximetry 08/02/17 09:13 Temperature Pulse Rate Respiratory Rate Blood Pressure 171/96 O2 Sat by Pulse Oximetry General appearance: Present: no acute distress - EENT Eyes: PERRL ENT: hearing intact - Respiratory Respiratory effort: normal - Gastrointestinal General gastrointestinal: Present: soft, tender (Mild diffuse) - Labs CBC & Chem 7: 07/31/17 16:34 07/31/17 16:34
--- NOTE | 2017-08-03 00:05 | History and Physical Report ---
CHIEF COMPLAINT: Abdominal pain. OTHER COMPLAINT: Includes nausea and vomiting. HISTORY OF PRESENT ILLNESS: The patient is a 57-year-old female with history of Crohn's disease who has not been followed up recently, presenting with abdominal pain associated with nausea, vomiting and diarrhea. 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 The pain was more cramping in the abdomen and there was also a history of associated palpitation, but there was no history of fever. The patient had multiple episodes of nausea, vomiting, and diarrhea. The patient also denies history of blood in the stool or dark stools and has not been taking any Crohn disease medication. The patient has had multiple hospitalizations in the past for Crohn disease and also has had a colonoscopy. There is no history of shortness of breath and no history of chest pain. PAST MEDICAL HISTORY: Pertinent for hypertension and Crohn disease. PAST SURGICAL HISTORY: Pertinent for cholecystectomy, hysterectomy, right rotator cuff surgery. FAMILY HISTORY: Noncontributory. SOCIAL HISTORY: The patient does not smoke, does not drink and does not use illicit drug. MEDICATIONS: The patient is on [place] 5/325 mg 1 by mouth every 6 hours as needed for pain and losartan or Cozaar 100 mg by mouth daily. ALLERGIES: The patient is allergic to ACETAMINOPHEN, HYDROCODONE BITARTRATE as well as TRAMADOL. REVIEW OF SYSTEMS: CONSTITUTIONAL: There is no fever, no chills, no diaphoresis. HEENT: There is no headache or sore throat. CARDIOVASCULAR: There is no chest pain or orthopnea, but there is palpitation. RESPIRATORY: There is no shortness of breath or cough. GASTROINTESTINAL: Abdominal pain present. Nausea and vomiting present. Diarrhea present. No hematochezia. No melena. NEUROLOGICAL: There is no numbness, no dizziness or altered mental status. MUSCULOSKELETAL: There is no joint pain or swelling. DERMATOLOGICAL: There is no skin rash or itching. GENITOURINARY: There is no dysuria, no hematuria or flank pain. Rest of system review is normal. PHYSICAL EXAMINATION: GENERAL: At the time of exam, the patient was found to be alert and oriented x 3 and in mild distress due to abdominal pain. VITAL SIGNS: Temperature of 98.5 degrees Fahrenheit, pulse of 89, respirations 20, blood pressure 168/91 and O2 sat of 100% on room air. HEENT: Eyes, show pupils to be equal, round, and reactive to light and accommodation. Extraocular muscles are intact. NECK: Supple with no JVD or carotid bruit. CARDIOVASCULAR: Showed normal first and second heart sounds, with no gallops or murmur. RESPIRATORY: Show good air entry on both sides of the lungs with no abnormal breath sounds. GASTROINTESTINAL: Show abdomen to be full, soft with generalized tenderness with no guarding or rigidity and no rebound tenderness was elicited. Bowel sounds are normal. MUSCULOSKELETAL: There is no joint pain or swelling. NEUROLOGICAL: There is no focal neurologic deficit. DERMATOLOGICAL: There is no skin rash. GENITOURINARY: There is no costovertebral angle tenderness. PERTINENT LABORATORY AND IMAGING STUDIES: The patient has CBC done that shows elevated white count of 12,800, normal hemoglobin, and slightly elevated hematocrit of 43.1 with normal MCV. CBC differential showed elevated segmented neutrophil of 82.2% and chemistry was unremarkable. IMAGING STUDIES: The patient had a CT of the abdomen and pelvic done that shows diffuse wall thickening of the distal half of the small bowel and ascending colon as well as distal stomach in the region of the pylorus and the radiologist say that findings are likely consistent with the known history of Crohn disease. DIAGNOSES: 1. Crohn disease exacerbation. 2. Gastroenteritis. PLAN: The patient will be admitted to medical floor and we will continue Gastroenterology consult with Dr. Skinner as stat set up by the Emergency Room physician. The patient will be on IV Dilaudid 1 mg every 4 hours as needed for pain and IV Zofran 4 mg every 6 hours for nausea and vomiting. The patient will be on IV Levaquin 750 mg daily and IV Solu-Medrol 60 mg every 6 hours as well as IV metronidazole 500 mg every 8 hours. The patient will be on IV normal saline at 125 mL an hour and will be on IV Protonix 40 mg daily. The patient will also be on her home medications as shown in the medication reconciliation section. JOB# [id number] OCN/NTS
[2017-08-03] MEDS: NACL 0.9% 1000 ML 1,000 ML IV SCH ×3 (00:11→15:23)
[2017-08-03] MEDS: DILAUDID IV PRN ×5 (01:07→23:01)
[2017-08-03] MEDS: ZOFRAN IV PRN ×3 (05:00→15:35)
[2017-08-03] MEDS: FLAGYL 500 MG/100 ML 500 MG/100 ML BAG IV SCH ×3 (05:00→22:19)
[2017-08-03 06:08] LABS: Basophils % (Auto) 0.1 % (0.0-1.8); Eosinophils % (Auto) 0.1 % (0.0-4.3); Hematocrit 31.7 % (30.3-42.9); Hemoglobin 10.5 gm/dl (10.1-14.3); Lymphocytes # (Auto) 2.4 K/mm3 (1.2-5.4); Mean Corpuscular HGB Conc 33 % (30-34); Mean Corpuscular Hemoglobin 28 pg (28-32); Mean Corpuscular Volume 83 fl (79-97); Monocytes # (Auto) 0.6 K/mm3 (0.0-0.8); Platelet Count 271 K/mm3 (140-440); Red Blood Count 3.82 M/mm3 (3.65-5.03); Red Cell Distribution Width 15.6 % (13.2-15.2)
[2017-08-03 06:30] LABS: BUN/Creatinine Ratio 13; Blood Urea Nitrogen 12 mg/dL (7-17); Calcium 8.4 mg/dL (8.4-10.2); Hemolysis Index 4
[2017-08-03] MEDS: LEVAQUIN 750MG/150ML 750 MG/150 ML BAG IV SCH (09:43)
[2017-08-03] MEDS: PEPCID IV SCH (09:44)
[2017-08-03] MEDS ORDERED: K-DUR PO ONE (10:00)
--- NOTE | 2017-08-03 10:46 | Progress Note ---
<KENNA MÉNDEZ - Last Filed: 08/03/17 10:41> Assessment and Plan Assessment and plan: Gastroenteritis. Continue antibiotics. GI following. Follow up stool studies , EGD likely for today per GI Crohn's disease. Continue IV steroids for potential acute flare/exacerbation. Sepsis. Present on admission. Etiology secondary to above. Follow culture results. Hypertension. Continue anti-hypertensive medications. Hypokalemia Supplemented DVT prophylaxis SCDs History Interval history: Patient demarco dn examined. Continues to complain of nausea, no vomiting today. Labs and nursing notes reviewed. Hospitalist Physical - Constitutional Vitals: Temp Pulse Resp BP Pulse Ox 98.8 F 64 15 160/95 96 08/03/17 07:40 08/03/17 07:40 08/03/17 07:40 08/03/17 07:40 08/03/17 07:40 General appearance: Present: no acute distress, well-nourished - EENT Eyes: Present: PERRL, EOM intact ENT: hearing intact, clear oral mucosa - Neck Neck: Present: supple, normal ROM - Respiratory Respiratory effort: normal Respiratory: bilateral: CTA - Cardiovascular Rhythm: regular Heart Sounds: Present: S1 & S2. Absent: rub, click - Extremities Extremities: no ischemia, pulses intact, No edema - Abdominal General gastrointestinal: soft, tender, non-distended Localized gastrointestinal: mass: epigastric periumbilical - Integumentary Integumentary: Present: clear, warm, dry - Psychiatric Psychiatric: appropriate mood/affect, intact judgment & insight, cooperative - Neurologic Neurologic: CNII-XII intact, moves all extremities - Allied Health Allied health notes reviewed: nursing Results - Labs CBC & Chem 7: 08/03/17 05:20 08/03/17 05:20 Labs: Laboratory Last Values WBC 9.2 K/mm3 (4.5-11.0) 08/03/17 05:20 RBC 3.82 M/mm3 (3.65-5.03) 08/03/17 05:20 Hgb 10.5 gm/dl (10.1-14.3) D 08/03/17 05:20 Hct 31.7 % (30.3-42.9) D 08/03/17 05:20 MCV 83 fl (79-97) 08/03/17 05:20 MCH 28 pg (28-32) 08/03/17 05:20 MCHC 33 % (30-34) 08/03/17 05:20 RDW 15.6 % (13.2-15.2) H 08/03/17 05:20 Plt Count 271 K/mm3 (140-440) 08/03/17 05:20 Lymph % (Auto) 26.0 % (13.4-35.0) 08/03/17 05:20 [place] % (Auto) 7.0 % (0.0-7.3) 08/03/17 05:20 Eos % (Auto) 0.1 % (0.0-4.3) 08/03/17 05:20 Baso % (Auto) 0.1 % (0.0-1.8) 08/03/17 05:20 Lymph # 2.4 K/mm3 (1.2-5.4) 08/03/17 05:20 [place] # 0.6 K/mm3 (0.0-0.8) 08/03/17 05:20 Eos # 0.0 K/mm3 (0.0-0.4) 08/03/17 05:20 Baso # 0.0 K/mm3 (0.0-0.1) 08/03/17 05:20 Seg Neutrophils % 66.8 % (40.0-70.0) 08/03/17 05:20 Seg Neutrophils # 6.2 K/mm3 (1.8-7.7) 08/03/17 05:20 Sodium 137 mmol/L (137-145) 08/03/17 05:20 Potassium 3.4 mmol/L (3.6-5.0) L 08/03/17 05:20 Chloride 103.0 mmol/L (98-107) 08/03/17 05:20 Carbon Dioxide 22 mmol/L (22-30) 08/03/17 05:20 Anion Gap 15 mmol/L 08/03/17 05:20 BUN 12 mg/dL (7-17) 08/03/17 05:20 Creatinine 0.9 mg/dL (0.7-1.2) 08/03/17 05:20 Estimated GFR > 60 ml/min 08/03/17 05:20 BUN/Creatinine Ratio 13 % 08/03/17 05:20 Glucose 92 mg/dL (65-100) 08/03/17 05:20 Calcium 8.4 mg/dL (8.4-10.2) D 08/03/17 05:20 Total Bilirubin 0.30 mg/dL (0.1-1.2) 07/31/17 16:34 AST 12 units/L (5-40) 07/31/17 16:34 ALT 8 units/L (7-56) 07/31/17 16:34 Alkaline Phosphatase 101 units/L (35-129) 07/31/17 16:34 Total Protein 8.3 g/dL (6.3-8.2) H 07/31/17 16:34 Albumin 4.2 g/dL (3.9-5) 07/31/17 16:34 Albumin/Globulin Ratio 1.0 % 07/31/17 16:34 Lipase 15 units/L (13-60) 07/31/17 16:34 Urine Color Yellow (Yellow) 08/01/17 09:33 Urine Turbidity Clear (Clear) 08/01/17 09:33 Urine pH 5.0 (5.0-7.0) 08/01/17 09:33 Ur Specific [place] 1.060 (1.003-1.030) H 08/01/17 09:33 Urine Protein <15 mg/dl mg/dL (Negative) 08/01/17 09:33 Urine Glucose (UA) Neg mg/dL (Negative) 08/01/17 09:33 Urine Ketones Neg mg/dL (Negative) 08/01/17 09:33 Urine Blood Sm (Negative) 08/01/17 09:33 Urine Nitrite Neg (Negative) 08/01/17 09:33 Urine Bilirubin Neg (Negative) 08/01/17 09:33 Urine Urobilinogen < 2.0 mg/dL (<2.0) 08/01/17 09:33 Ur Leukocyte Esterase Neg (Negative) 08/01/17 09:33 Urine WBC (Auto) 1.0 /HPF (0.0-6.0) 08/01/17 09:33 Urine RBC (Auto) 3.0 /HPF (0.0-6.0) 08/01/17 09:33 U Epithel Cells (Auto) 5.0 /HPF (0-13.0) 08/01/17 09:33 Urine Mucus 3+ /HPF 08/01/17 09:33 - Imaging and Cardiology CT scan - abdomen: report reviewed (Diffuse wall thickening of the distal half of the small bowel ) <GLADYS EMMANUEL R - Last Filed: 08/04/17 07:17> Assessment and Plan Assessment and plan: I saw and evaluated the patient. I agree with the findings and the plan of care as documented in the Nurse Practitioner's~note, with the following corrections and additions. Hospitalist Physical - Constitutional Vitals: Temp Pulse Resp BP Pulse Ox 98.6 F 75 19 143/108 97 08/04/17 00:01 08/04/17 00:01 08/04/17 06:02 08/04/17 00:01 08/04/17 00:01 Results - Labs CBC & Chem 7: 08/04/17 05:34 08/04/17 05:34 Labs: Laboratory Last Values WBC 7.8 K/mm3 (4.5-11.0) 08/04/17 05:34 RBC 4.39 M/mm3 (3.65-5.03) 08/04/17 05:34 Hgb 12.1 gm/dl (10.1-14.3) 08/04/17 05:34 Hct 36.0 % (30.3-42.9) 08/04/17 05:34 MCV 82 fl (79-97) 08/04/17 05:34 MCH 28 pg (28-32) 08/04/17 05:34 MCHC 34 % (30-34) 08/04/17 05:34 RDW 15.0 % (13.2-15.2) 08/04/17 05:34 Plt Count 264 K/mm3 (140-440) 08/04/17 05:34 Lymph % (Auto) 30.7 % (13.4-35.0) 08/04/17 05:34 [place] % (Auto) 9.3 % (0.0-7.3) H 08/04/17 05:34 Eos % (Auto) 0.4 % (0.0-4.3) 08/04/17 05:34 Baso % (Auto) 0.3 % (0.0-1.8) 08/04/17 05:34 Lymph # 2.4 K/mm3 (1.2-5.4) 08/04/17 05:34 [place] # 0.7 K/mm3 (0.0-0.8) 08/04/17 05:34 Eos # 0.0 K/mm3 (0.0-0.4) 08/04/17 05:34 Baso # 0.0 K/mm3 (0.0-0.1) 08/04/17 05:34 Seg Neutrophils % 59.3 % (40.0-70.0) 08/04/17 05:34 Seg Neutrophils # 4.6 K/mm3 (1.8-7.7) 08/04/17 05:34 Sodium 141 mmol/L (137-145) 08/04/17 05:34 Potassium 3.6 mmol/L (3.6-5.0) 08/04/17 05:34 Chloride 100.0 mmol/L (98-107) 08/04/17 05:34 Carbon Dioxide 27 mmol/L (22-30) 08/04/17 05:34 Anion Gap 18 mmol/L 08/04/17 05:34 BUN 6 mg/dL (7-17) L 08/04/17 05:34 Creatinine 0.9 mg/dL (0.7-1.2) 08/04/17 05:34 Estimated GFR > 60 ml/min 08/04/17 05:34 BUN/Creatinine Ratio 7 % 08/04/17 05:34 Glucose 92 mg/dL (65-100) 08/04/17 05:34 Calcium 8.8 mg/dL (8.4-10.2) 08/04/17 05:34 Total Bilirubin 0.30 mg/dL (0.1-1.2) 07/31/17 16:34 AST 12 units/L (5-40) 07/31/17 16:34 ALT 8 units/L (7-56) 07/31/17 16:34 Alkaline Phosphatase 101 units/L (35-129) 07/31/17 16:34 Total Protein 8.3 g/dL (6.3-8.2) H 07/31/17 16:34 Albumin 4.2 g/dL (3.9-5) 07/31/17 16:34 Albumin/Globulin Ratio 1.0 % 07/31/17 16:34 Lipase 15 units/L (13-60) 07/31/17 16:34 Urine Color Yellow (Yellow) 08/01/17 09:33 Urine Turbidity Clear (Clear) 08/01/17 09:33 Urine pH 5.0 (5.0-7.0) 08/01/17 09:33 Ur Specific [place] 1.060 (1.003-1.030) H 08/01/17 09:33 Urine Protein <15 mg/dl mg/dL (Negative) 08/01/17 09:33 Urine Glucose (UA) Neg mg/dL (Negative) 08/01/17 09:33 Urine Ketones Neg mg/dL (Negative) 08/01/17 09:33 Urine Blood Sm (Negative) 08/01/17 09:33 Urine Nitrite Neg (Negative) 08/01/17 09:33 Urine Bilirubin Neg (Negative) 08/01/17 09:33 Urine Urobilinogen < 2.0 mg/dL (<2.0) 08/01/17 09:33 Ur Leukocyte Esterase Neg (Negative) 08/01/17 09:33 Urine WBC (Auto) 1.0 /HPF (0.0-6.0) 08/01/17 09:33 Urine RBC (Auto) 3.0 /HPF (0.0-6.0) 08/01/17 09:33 U Epithel Cells (Auto) 5.0 /HPF (0-13.0) 08/01/17 09:33 Urine Mucus 3+ /HPF 08/01/17 09:33
[2017-08-03] MEDS ORDERED: REGLAN IV PRN (15:44)
[2017-08-03] MEDS ORDERED: NORMODYNE IV ONE (16:00)
--- NOTE | 2017-08-03 16:48 | Anesthesia Day of Surgery ---
Anesthesia Day of Surgery - Day of Surgery Patient Examined: Yes Patient H&P Reviewed: Yes Patient is NPO: Yes
--- NOTE | 2017-08-03 16:48 | Anesthesia Consultation ---
Anesthesia Consult and Med Hx Date of service: 08/03/17 - Airway Anesthetic Teeth Evaluation: Edentulous ROM Head & Neck: Adequate Mental/Hyoid Distance: Adequate Mallampati Class: Class II Intubation Access Assessment: Probably Good - Pre-Operative Health Status ASA Pre-Surgery Classification: ASA2 Proposed Anesthetic Plan: MAC - Pulmonary Hx Asthma: No COPD: No Hx Pneumonia: No - Cardiovascular System Hx Hypertension: Yes (2007) - Gastrointestinal Hx Gastroesophageal Reflux Disease: Yes - Endocrine Hx End Stage Renal Disease: No - Other Systems Hx Obesity: Yes (BMI 32.8)
[2017-08-03] MEDS ORDERED: WATER FOR IRRIG STERILE IR ONE (17:50)
[2017-08-03] MEDS ORDERED: DIPRIVAN 10 MG/ML IV ONE ×2 (18:16)
--- NOTE | 2017-08-03 18:31 | Post Operative Note ---
Pre-op diagnosis: Abnormal CT scan Post-op diagnosis: other (Gastritis/duodenitis) Findings: 1. Mild erythema in the antrum/duodenum, cold biopsies taken Procedure: EGD with cold biopsy Anesthesia: MAC Surgeon: GUSTAVO MARTIN Estimated blood loss: minimal Pathology: list (1. Random duodenum. 2. Gastric antrum.) Specimen disposition: to lab Condition: stable Disposition: floor (Recs: 1. Advance diet. 2. F/U pathology in the clinic. 3. OK to d/c home per our service.)
--- NOTE | 2017-08-03 18:38 | Post Anesthesia Evaluation ---
- Post Anesthesia Evaluation Patient Participated: Yes Airway Patent: Yes Stable Respiratory Function: Yes Nausea/Vomiting: No Temp > 96.8F: Yes Pain Manageable: Yes Adequeate Hydration: Yes Anesthesia Complications: No
--- NOTE | 2017-08-03 19:17 | Operative Report ---
PROCEDURE PERFORMED: Esophagogastroduodenoscopy with cold biopsy. PREOPERATIVE DIAGNOSIS: Abnormal CT scan with abdominal pain and possible Crohn's. POSTOPERATIVE DIAGNOSES: Mild gastritis/duodenitis, but otherwise normal. ENDOSCOPIST: Nik Paez MD INSTRUMENT: Uskape video endoscope. MEDICATIONS: MAC anesthesia by Anesthesia Services. COMPLICATIONS: No apparent complications. ESTIMATED BLOOD LOSS: Minimal. SPECIMENS: 1. Random duodenum. 2. Gastric antrum. IMPLANTS: None. ASSISTANTS: None. CONDITION AT COMPLETION: Stable. TECHNIQUE: The patient was informed of the risks and benefits of the procedure. She signed the informed consent to proceed. She was placed in the left lateral decubitus position. The above sedative medications were given. Her vital signs remained stable throughout the procedure. The instrument was advanced from the mouth to the second portion of the duodenum under direct visualization. At that point, the bowel was insufflated and the endoscope was slowly withdrawn. FINDINGS: 1. Mild erythema in the duodenum, status post cold biopsy. 2. Mild erythema in the antrum of the stomach, status post cold biopsy. 3. Small hiatal hernia. RECOMMENDATIONS: 1. Advance diet. 2. Follow up pathology in the clinic. 3. Okay to discharge home per our service. JOB# [id number] KENNY/NTS
[2017-08-03] MEDS: COZAAR PO SCH (19:19)
[2017-08-03] MEDS: PEPCID PO SCH (22:19)
[2017-08-04] MEDS: FLAGYL 500 MG/100 ML 500 MG/100 ML BAG IV SCH (06:01)
[2017-08-04] MEDS: DILAUDID IV PRN ×2 (06:02→10:17)
[2017-08-04 06:11] LABS: Basophils % (Auto) 0.3 % (0.0-1.8); Eosinophils % (Auto) 0.4 % (0.0-4.3); Hemoglobin 12.1 gm/dl (10.1-14.3); Lymphocytes # (Auto) 2.4 K/mm3 (1.2-5.4); Lymphocytes % (Auto) 30.7 % (13.4-35.0); Mean Corpuscular HGB Conc 34 % (30-34); Mean Corpuscular Hemoglobin 28 pg (28-32); Mean Corpuscular Volume 82 fl (79-97); Monocytes # (Auto) 0.7 K/mm3 (0.0-0.8); Monocytes % (Auto) 9.3 % (0.0-7.3); Platelet Count 264 K/mm3 (140-440); Red Blood Count 4.39 M/mm3 (3.65-5.03)
[2017-08-04 06:30] LABS: BUN/Creatinine Ratio 7; Blood Urea Nitrogen 6 mg/dL (7-17); Calcium 8.8 mg/dL (8.4-10.2); Hemolysis Index 62
[2017-08-04 08:31] VITALS: BP 135/88
[2017-08-04] MEDS: COZAAR PO SCH ×2 (08:41→10:18)
--- NOTE | 2017-08-04 09:05 | Discharge Summary ---
Providers - Providers Date of Admission: 07/31/17 22:45 Attending physician: GLADYS EMMANUEL 07/31/17 20:54 Consult to Physician [CONS] Urgent Comment: Consulting Provider: FER VILLATORO Physician Instructions: Reason For Exam: chrons, gastroenteritis Primary care physician: AERODYNAMIC CONSULTANT Hospitalization Condition: Stable Disposition: DC-30 STILL A PATIENT Core Measure Documentation - Palliative Care Palliative Care/ Comfort Measures: Not Applicable Exam - Constitutional Vitals: Temp Pulse Resp BP Pulse Ox 98.4 F 68 19 135/88 99 08/04/17 07:40 08/04/17 07:40 08/04/17 07:40 08/04/17 08:41 08/04/17 07:40 Plan Diet: advance as tolerated Follow up with: MACEY CADET MD [Primary Care Provider] - 3-5 Days GUSTAVO MARTIN MD [Staff Physician] - 7 Days
[2017-08-04] MEDS: LEVAQUIN 750MG/150ML 750 MG/150 ML BAG IV SCH (09:52)
[2017-08-04] MEDS: PEPCID PO SCH (09:53)
[2017-08-04] MEDS ORDERED: FLAGYL PO SCH (14:00)
[2017-08-05] MEDS ORDERED: LEVAQUIN PO SCH (10:00)
== END 2017-08-04 16:20 | disposition home or self-care (01) | DRG 872 ==
LOC: ED 15:51 → 3A 22:45
PROVIDERS: ADMIT Internal Medicine; ATTEND Hospitalist
PROC: 0DB98ZX Excision of Duodenum, Via Natural or Artificial Opening Endoscopic, Diagnostic (ICD-10-PCS; principal; 2017-08-03)
PROC: 0DB68ZX Excision of Stomach, Via Natural or Artificial Opening Endoscopic, Diagnostic (ICD-10-PCS; 2017-08-03)
DX: A41.9 Sepsis, unspecified organism (principal); K50.90 Crohn's disease, unspecified, without complications; K52.9 Noninfective gastroenteritis and colitis, unspecified; I10 Essential (primary) hypertension; K21.9 Gastro-esophageal reflux disease without esophagitis; K29.70 Gastritis, unspecified, without bleeding; E66.9 Obesity, unspecified; E87.6 Hypokalemia; K44.9 Diaphragmatic hernia without obstruction or gangrene; Z90.49 Acquired absence of other specified parts of digestive tract; Z68.32 Body mass index [BMI] 32.0-32.9, adult; Z90.710 Acquired absence of both cervix and uterus; Z88.8 Allergy status to other drugs, medicaments and biological substances; Z79.899 Other long term (current) drug therapy
CPT/HCPCS: 36415; 74177; 80048; 80053; 81001; 83690; 85025; 88305; 88342; 90686; 96365; 96366; 96375; 96376; C9113; J1170; J1956; J2405; J2704; J2765; J2920; J2930; J7030; Q9967

== ENCOUNTER 2018-12-06 09:35 | Emergency (ER) | payer BC, MEDICARE ==
[2018-12-06 10:01] LABS: Basophils # (Auto) 0.1 K/mm3 (0.0-0.1); Basophils % (Auto) 0.9 % (0.0-1.8); Eosinophils % (Auto) 0.2 % (0.0-4.3); Hematocrit 40.8 % (30.3-42.9); Hemoglobin 13.6 gm/dl (10.1-14.3); Lymphocytes # (Auto) 2.7 K/mm3 (1.2-5.4); Lymphocytes % (Auto) 20.8 % (13.4-35.0); Mean Corpuscular HGB Conc 33 % (30-34); Mean Corpuscular Volume 82 fl (79-97); Monocytes # (Auto) 0.5 K/mm3 (0.0-0.8); Monocytes % (Auto) 3.5 % (0.0-7.3); Platelet Count 543 K/mm3 (140-440); Red Blood Count 4.96 M/mm3 (3.65-5.03); Red Cell Distribution Width 15.4 % (13.2-15.2)
[2018-12-06 10:23] LABS: Alanine Aminotransferase 10 units/L (7-56); Albumin 4.6 g/dL (3.9-5); BUN/Creatinine Ratio 9; Blood Urea Nitrogen 9 mg/dL (7-17); Calcium 9.9 mg/dL (8.4-10.2); Hemolysis Index 3
[2018-12-06 10:38] LABS: Bacteria,Urine 1+ /HPF (Negative); Bilirubin,Urine NEG (Negative); Blood,Urine MOD (Negative); Color,Urine Amber (Yellow); Mucus,Urine FEW /HPF; Urobilinogen,Urine < 2.0 mg/dL (<2.0)
--- NOTE | 2018-12-06 11:17 | Emergency Department Report ---
Vomiting/Diarrhea - HPI Chief Complaint: Nausea/Vomiting/Diarrhea Stated Complaint: STOMACH ACHES Time Seen by Provider: 12/06/18 10:05 Duration: 3 Days Severity: moderate Nausea/Vomiting Severity: Moderate Diarrhea Severity: Moderate Pain Location: Generalized Pain Severity: Moderate Symptoms: Yes Watery Diarrhea, Yes Able to Tolerate Fluids, No Bloody diarrhea, No Fever, No Recent Unusual Foods, No Recent Untreated Water, No Recent use of Antibiotics, No Family w/ Similar Symptoms, No Contacts w/ Similar Symptoms, No Rash, No Hematuria, No Recent URI Symptoms Other History: This is a 58-year-old -[place] female who presents to the emergency room with diffuse abdominal pain, nausea, vomiting, and diarrhea for 3 days. Past medical history of Crohn's disease and hypertension. Patient reports stools or foul smelling without blood or tarry. ED Review of Systems ROS: Stated complaint: STOMACH ACHES Other details as noted in HPI Constitutional: denies: chills, fever Respiratory: denies: cough, shortness of breath, wheezing Cardiovascular: denies: chest pain, palpitations Gastrointestinal: abdominal pain, nausea, vomiting, diarrhea Genitourinary: denies: urgency, dysuria, discharge Musculoskeletal: denies: back pain, joint swelling, arthralgia Skin: denies: rash, lesions Neurological: denies: headache, weakness, paresthesias Psychiatric: denies: anxiety, depression ED Past Medical Hx - Past Medical History Previous Medical History?: Yes Hx Hypertension: Yes (2007) Hx Congestive Heart Failure: No Hx Diabetes: No Hx Asthma: No Hx COPD: No Additional medical history: CHRON'S - Surgical History Past Surgical History?: Yes Hx Cholecystectomy: Yes Additional Surgical History: HYSTERECTOMY / RIGHT ROTATOR CUFF - Social History Smoking Status: Never Smoker Substance Use Type: None - Medications Home Medications: Home Medications Medication Instructions Recorded Confirmed Last Taken Type HYDROcodone/APAP 5-325 [[place] 1 each PO Q6HR PRN #15 tablet 04/18/16 Unknown Rx 5-325 mg TAB] Losartan [Cozaar] 100 mg PO QDAY #30 tablet 06/22/16 08/01/17 07/30/17 07:00 Rx 100 Dicyclomine [Bentyl] 40 mg PO QID PRN #20 tablet 12/06/18 Unknown Rx metroNIDAZOLE [Flagyl TAB] 500 mg PO Q12HR #14 tab 12/06/18 Unknown Rx Vomiting Diarrhea Exam - Exam General: Vital signs noted. No distress. Alert and acting appropriately. HEENT: Yes Moist Mucous Membranes, No Pharyngeal Erythema, No Pharyngeal Exudates, No Rhinorrhea, No Conjuctival Injection, No Frontal Tenderness, No Maxillary Tenderness Neck: No Adenopathy, No Rigidity Lungs: Yes Clear Lung Sounds, Yes Good Air Exchange, No Wheezes, No Stridor, No Cough, No Nasal Flaring, No Retractions, No Use of Accessory Muscles Heart exam: Regular: Yes, Murmur: No, Tachycardia: No Abdomen: Tenderness: Yes (right lower quadrant and left lower quadrant), Peritoneal Signs: No, Distention: No, Hyperactive Bowel sounds: No Skin exam: Rash: No, Edema: No, Normal turgor: Yes Neurologic: Alert and oriented, no deficits. Musculoskeletal: Unremarkable. ED Course Vital Signs 12/06/18 09:40 Temperature 98.4 F Pulse Rate 129 H Respiratory 18 Rate Blood Pressure 137/101 O2 Sat by Pulse 99 Oximetry ED Medical Decision Making - Lab Data Result diagrams: 12/06/18 09:50 12/06/18 09:50 Lab Results 12/06/18 12/06/18 12/06/18 Range/Units 09:50 09:50 09:50 WBC 13.1 H (4.5-11.0) K/mm3 RBC 4.96 (3.65-5.03) M/mm3 Hgb 13.6 (10.1-14.3) gm/dl Hct 40.8 (30.3-42.9) % MCV 82 (79-97) fl MCH 27 L (28-32) pg MCHC 33 (30-34) % RDW 15.4 H (13.2-15.2) % Plt Count 543 H (140-440) K/mm3 Lymph % (Auto) 20.8 (13.4-35.0) % Moody % (Auto) 3.5 (0.0-7.3) % Eos % (Auto) 0.2 (0.0-4.3) % Baso % (Auto) 0.9 (0.0-1.8) % Lymph # 2.7 (1.2-5.4) K/mm3 Moody # 0.5 (0.0-0.8) K/mm3 Eos # 0.0 (0.0-0.4) K/mm3 Baso # 0.1 (0.0-0.1) K/mm3 Seg Neutrophils % 74.6 H (40.0-70.0) % Seg Neutrophils # 9.8 H (1.8-7.7) K/mm3 Sodium 140 (137-145) mmol/L Potassium 3.4 L (3.6-5.0) mmol/L Chloride 99.0 (98-107) mmol/L Carbon Dioxide 25 (22-30) mmol/L Anion Gap 19 mmol/L BUN 9 (7-17) mg/dL Creatinine 1.0 (0.7-1.2) mg/dL Estimated GFR > 60 ml/min BUN/Creatinine Ratio 9 % Glucose 116 H (65-100) mg/dL Calcium 9.9 (8.4-10.2) mg/dL Total Bilirubin 0.40 (0.1-1.2) mg/dL AST 14 (5-40) units/L ALT 10 (7-56) units/L Alkaline Phosphatase 121 (35-129) units/L Total Protein 8.6 H (6.3-8.2) g/dL Albumin 4.6 (3.9-5) g/dL Albumin/Globulin Ratio 1.2 % Urine Color Emperatriz (Yellow) Urine Turbidity Hazy (Clear) Urine pH 6.0 (5.0-7.0) Ur Specific [place] 1.023 (1.003-1.030) Urine Protein 30 mg/dl (Negative) mg/dL Urine Glucose (UA) Neg (Negative) mg/dL Urine Ketones Tr (Negative) mg/dL Urine Blood Mod (Negative) Urine Nitrite Neg (Negative) Urine Bilirubin Neg (Negative) Urine Urobilinogen < 2.0 (<2.0) mg/dL Ur Leukocyte Esterase Neg (Negative) Urine WBC (Auto) 3.0 (0.0-6.0) /HPF Urine RBC (Auto) 13.0 (0.0-6.0) /HPF U Epithel Cells (Auto) 4.0 (0-13.0) /HPF Urine Bacteria (Auto) 1+ (Negative) /HPF Urine Mucus Few /HPF - Radiology Data Radiology results: report reviewed CT ABDOMEN AND PELVIS WITH CONTRAST HISTORY: Right lower quadrant and left lower quadrant abdominal pain COMPARISON: None TECHNIQUE: Routine abdominal and pelvic CT exam performed with 100 cc of IV Omnipaque [address] scans at this location are performed using CT dose reduction for ALARA by means of automated exposure control. FINDINGS: CT ABDOMEN: Lung Bases: No significant abnormality. Liver: No significant abnormality. Biliary: Gallbladder is surgically absent. Spleen: No significant abnormality. Unenlarged. Pancreas: No significant abnormality. Adrenals: No significant abnormality. Kidneys: No significant abnormality. Lymphatics: No lymphadenopathy. Vasculature: No significant abnormality. Bowel/Peritoneum: No significant abnormality. No free air. No free fluid. Normal appendix. CT PELVIC: : The uterus is surgically absent. There are no adnexal masses. Lymphatics: No lymphadenopathy. Osseous Structures: No aggressive appearing osseous lesions. Additional Findings: None IMPRESSION: 1. No acute findings. No evidence of bowel obstruction, inflammatory change, or fluid collection in the abdomen. - Medical Decision Making Patient is stable and was examined by me. Vitals stable. Obtained labs and CT of abdomen and pelvis. Hypokalemia, given Klor-Con 40 mEq by mouth once. Leukocytosis mildly. All of the labs are unremarkable. IV site obtained and given Reglan, Toradol, Bentyl, and normal saline. Cramping and pain may be associated with Crohn's disease although not active on CT scan. Patient was rehydrated. Start Bentyl and Flagyl for symptomatic relief. Instructed to follow-up with her primary care doctor. Referral to victims advocate clerk/specialist for follow-up. Discussed plan with patient and agreed to plan. No further questions noted by the patient. Discharged home in stable condition. Follow up with PCP in 2-3 days. Critical care attestation.: If time is entered above; I have spent that time in minutes in the direct care of this critically ill patient, excluding procedure time. ED Disposition Clinical Impression: Gastroenteritis, Nausea, vomiting and diarrhea Abdominal pain Qualifiers: Abdominal location: generalized Qualified Code(s): R10.84 - Generalized abdo sarahy pain Disposition: - TO HOME OR SELFCARE Is pt being admited?: No Does the pt Need Aspirin: No Condition: Stable Instructions: Crohn Disease (ED), Acute Nausea and Vomiting (ED), Abdominal Pain (ED) Additional Instructions: Please course of antibiotics as prescribed. Wash hands frequently. Follow-up with your primary care doctor. I have referred provider victims advocate clerk/specialist for follow-up below. Prescriptions: Dicyclomine [Bentyl] 40 mg PO QID PRN #20 tablet PRN Reason: cramp metroNIDAZOLE [Flagyl TAB] 500 mg PO Q12HR #14 tab Referrals: [facility] [Provider Group] - 3-5 Days DEVIKA GUY MD [Staff Physician] - 3-5 Days Forms: Work/School Release Form(ED) Time of Disposition: 14:35
[2018-12-06] MEDS ORDERED: NACL 0.9% 1000 ML 1,000 ML IV ONE (11:29)
[2018-12-06] MEDS ORDERED: REGLAN IV ONE (11:29)
[2018-12-06] MEDS ORDERED: TORADOL IV ONE (12:47)
--- NOTE | 2018-12-06 13:52 | Cat Scan Report ---
CT ABDOMEN AND PELVIS WITH CONTRAST HISTORY: Right lower quadrant and left lower quadrant abdominal pain COMPARISON: None TECHNIQUE: Routine abdominal and pelvic CT exam performed with 100 cc of IV Omnipaque [address] scans at this location are performed using CT dose reduction for ALARA by means of automated ex posure control. FINDINGS: CT ABDOMEN: Lung Bases: No significant abnormality. Liver: No significant abnormality. Biliary: Gallbladder is surgically absent. Spleen: No significant abnormality. Unenlarged. Pancreas: No significant abnormality. Adrenals: No significant abnormality. Kidneys: No significant abnormality. Lymphatics: No lymphadenopathy. Vasculature: No significant abnormality. Bowel/Peritoneum: No significant abnormality. No free air. No free fluid. Normal appendix. CT PELVIC: : The uterus is surgically absent. There are no adnexal masses. Lymphatics: No lymphadenopathy. Osseous Structures: No aggressive appearing osseous lesions. Additional Findings: None IMPRESSION: 1. No acute findings. No evidence of bowel obstruction, inflammatory change, or fluid collection in t he abdomen. Signer Name: Live Johnson MD Signed: 12/06/2018 1:48 PM Workstation Name: [id number]
[2018-12-06] MEDS ORDERED: K-DUR PO ONE (14:06)
[2018-12-06] MEDS ORDERED: MORPHINE IV ONE (14:19)
[2018-12-06 14:51] VITALS: BP 149/96
[2018-12-06] MEDS ORDERED: BENTYL PO ONE (15:00)
== END 2018-12-06 15:36 | disposition home or self-care (01) ==
LOC: ED 09:35
DX: K52.9 Noninfective gastroenteritis and colitis, unspecified (principal); I10 Essential (primary) hypertension; Z90.49 Acquired absence of other specified parts of digestive tract; Z90.710 Acquired absence of both cervix and uterus; Z79.899 Other long term (current) drug therapy; Z88.6 Allergy status to analgesic agent; Z88.8 Allergy status to other drugs, medicaments and biological substances
CPT/HCPCS: 36415; 74177; 80053; 81001; 85025; 96361; 96374; 96375; 99284; J1885; J2270; J2765; J7030; Q9967

== ENCOUNTER 2020-06-22 11:28 | Emergency (ER) | payer MEDICARE, BC ==
[2020-06-22] MEDS ORDERED: SODIUM CHLORIDE 0.9% 500 ML 500 ML IV ONE (12:12)
[2020-06-22 12:42] VITALS: BP 194/113
[2020-06-22 13:06] LABS: Bilirubin,Urine NEG (Negative); Blood,Urine SM (Negative); Color,Urine Yellow (Yellow); Hyaline Casts,Urine 1 /LPF; Mucus,Urine FEW /HPF; Protein,Urine <15 mg/dL mg/dL (Negative); Urobilinogen,Urine < 2.0 mg/dL (<2.0)
[2020-06-22] MEDS ORDERED: KETOROLAC 30 MG/1 ML INJ IM ONE (14:15)
--- NOTE | 2020-06-22 14:34 | Emergency Department Report ---
ED Dysuria HPI - HPI Chief Complaint: Urogenital-Female Stated Complaint: POSSIBLE BLADDER/KIDNEY INFECTION Time Seen by Provider: 06/22/20 14:02 Duration: 4 Days Location of Discomfort: Flank Symptoms: Dysuria: Yes, Frequency: Yes, Suprapubic Pain: No, Flank Pain: Yes, Fever: No, Hematuria: No, Abdominal Pain: No, Previous UTI's: Yes Other History: This is a 60-year-old female with a history of interstitial cystitis and high blood pressure controlled with medication who presents to ED complaining of bilateral flank pain ongoing for about a month now. Patient stat es that she has had mild dysuria for the past couple days. She denies nausea vomiting, fever, abdominal pain ED Review of Systems ROS: Stated complaint: POSSIBLE BLADDER/KIDNEY INFECTION Other details as noted in HPI Comment: All other systems reviewed and negative ED Past Medical Hx - Past Medical History Previous Medical History?: Yes Hx Hypertension: Yes (2007) Hx Congestive Heart Failure: No Hx Diabetes: No Hx Asthma: No Hx COPD: No Additional medical history: CHRON'S - Surgical History Past Surgical History?: Yes Hx Cholecystectomy: Yes Additional Surgical History: HYSTERECTOMY / RIGHT ROTATOR CUFF - Social History Smoking Status: Never Smoker Substance Use Type: None - Medications Home Medications: Home Medications Medication Instructions Recorded Confirmed Last Taken Type HYDROcodone/APAP 5-325 [[place] 1 each PO Q6HR PRN #15 tablet 04/18/16 Unknown Rx 5-325 mg TAB] Losartan [Cozaar] 100 mg PO QDAY #30 tablet 06/22/16 08/01/17 07/30/17 07:00 Rx 100 Dicyclomine [Bentyl] 40 mg PO QID PRN #20 tablet 12/06/18 Unknown Rx metroNIDAZOLE [Flagyl TAB] 500 mg PO Q12HR #14 tab 12/06/18 Unknown Rx Sulfamethoxazole/Trimethoprim 1 each PO BID #14 tablet 06/22/20 Unknown Rx [Bactrim DS TAB] traMADoL [Ultram 50 MG tab] 50 mg PO Q6HR PRN #12 tablet 06/22/20 Unknown Rx Dysuria Exam - Exam General: Vital signs noted. No distress. Alert and acting appropriately. Exam: Yes Moist Mucous Membranes, No CVA Tenderness, No Abdominal Tenderness, No Rigidity or Guarding Exam: Abdomen: Nontender all quadrants, no edema, no mass, no megaly Labs: Lab Results 06/22/20 Range/Units Unknown Urine Color Yellow (Yellow) Urine Turbidity Clear (Clear) Urine pH 5.0 (5.0-7.0) Ur Specific [place] 1.027 (1.003-1.030) Urine Protein <15 mg/dl (Negative) mg/dL Urine Glucose (UA) Neg (Negative) mg/dL Urine Ketones Neg (Negative) mg/dL Urine Blood Sm (Negative) Urine Nitrite Neg (Negative) Urine Bilirubin Neg (Negative) Urine Urobilinogen < 2.0 (<2.0) mg/dL Ur Leukocyte Esterase Tr (Negative) Urine WBC (Auto) 1.0 (0.0-6.0) /HPF Urine RBC (Auto) 20.0 (0.0-6.0) /HPF U Epithel Cells (Auto) 2.0 (0-13.0) /HPF Hyaline Casts 1 /LPF Urine Mucus Few /HPF ED Course Vital Signs 06/22/20 12:41 Temperature 98.5 F Pulse Rate 82 Respiratory 16 Rate Blood Pressure 194/113 [Right] O2 Sat by Pulse 99 Oximetry ED Medical Decision Making - Lab Data Laboratory Last Values Urine Color Yellow (Yellow) 06/22/20 Unknown Urine Turbidity Clear (Clear) 06/22/20 Unknown Urine pH 5.0 (5.0-7.0) 06/22/20 Unknown Ur Specific [place] 1.027 (1.003-1.030) 06/22/20 Unknown Urine Protein <15 mg/dl mg/dL (Negative) 06/22/20 Unknown Urine Glucose (UA) Neg mg/dL (Negative) 06/22/20 Unknown Urine Ketones Neg mg/dL (Negative) 06/22/20 Unknown Urine Blood Sm (Negative) 06/22/20 Unknown Urine Nitrite Neg (Negative) 06/22/20 Unknown Urine Bilirubin Neg (Negative) 06/22/20 Unknown Urine Urobilinogen < 2.0 mg/dL (<2.0) 06/22/20 Unknown Ur Leukocyte Esterase Tr (Negative) 06/22/20 Unknown Urine WBC (Auto) 1.0 /HPF (0.0-6.0) 06/22/20 Unknown Urine RBC (Auto) 20.0 /HPF (0.0-6.0) 06/22/20 Unknown U Epithel Cells (Auto) 2.0 /HPF (0-13.0) 06/22/20 Unknown Hyaline Casts 1 /LPF 06/22/20 Unknown Urine Mucus Few /HPF 06/22/20 Unknown - Medical Decision Making 60-year-old female presents with a mild cystitis with flank pain ED course: Patient received Toradol for pain during ED stay Urinalysis is positive for leukocyte esterase, normal otherwise. I discussed this findings with the patient. . I discussed with the patient that in if any new symptoms to return back to the ED. I discussed the patient to make sure he completes all of the antibiotic dose even until symptoms resolve. I discussed with the patient on Pyridium will turn his urine orangeish color but will stop once he stops taking pyridium Patient is in no acute distress, patient also has on instructions were given to him. He had on exam for ED stay. - Differential Diagnosis UTI, pyelonephritis, muscular strain, kidney stone Critical care attestation.: If time is entered above; I have spent that time in minutes in the direct care of this critically ill patient, excluding procedure time. ED Disposition Clinical Impression: UTI (urinary tract infection), Uncontrolled hypertension, Flank pain, Asymptomatic hypertension Disposition: TO HOME OR SELFCARE Is pt being admited?: No Does the pt Need Aspirin: No Condition: Stable Instructions: Hypertension (ED), Urinary Tract Infection, Adult, [id number], Flank Pain, Adult, [id number] Additional Instructions: Make sure to follow up with the primary care physician as discussed. Take all your medications as you've been prescribed. If you have any worsening symptoms or develop new symptoms please return to ED immediately. Prescriptions: Sulfamethoxazole/Trimethoprim [Bactrim DS TAB] 1 each PO BID #14 tablet traMADoL [Ultram 50 MG tab] 50 mg PO Q6HR PRN #12 tablet PRN Reason: Pain Referrals: PRIMARY CAREMD [Primary Care Provider] - 3-5 Days [facility] [Provider Group] - 3-5 Days Forms: Accompanied Note, Work/School Release Form(ED) Time of Disposition: 15:21
== END 2020-06-22 15:30 | disposition home or self-care (01) ==
LOC: ED 11:28
DX: N39.0 Urinary tract infection, site not specified (principal); R10.9 Unspecified abdominal pain; I10 Essential (primary) hypertension; Z90.49 Acquired absence of other specified parts of digestive tract; Z90.710 Acquired absence of both cervix and uterus; Z98.890 Other specified postprocedural states; Z79.899 Other long term (current) drug therapy; Z88.8 Allergy status to other drugs, medicaments and biological substances
CPT/HCPCS: 81001; 96372; 99283; J1885

== ENCOUNTER 2021-11-08 12:34 | Outpatient (CLI) | payer MEDICARE, BC ==
--- NOTE | 2021-11-08 13:35 | Cat Scan Report ---
CT ABDOMEN AND PELVIS WITHOUT IV CONTRAST INDICATION: R31.0 HEMATURIA GROSS. COMPARISON: CT 12/06/2018 TECHNIQUE: All CT scans at this facility use dose modulation, automated exposure control, iterative reconstructi on or weight based dosing, when appropriate, to reduce radiation dose to as low as reasonably achieva ble. FINDINGS: Lung Bases: No significant abnormality. Skeletal System: No acute abnormality. ABDOMEN: Liver: No significant abnormality. Gallbladder: Removed. Bile Ducts: No significant abnormality. Adrenals: No significant abnormality. Right Kidney: No significant abnormality. Left Kidney: No significant abnormality. Pancreas: No significant abnormality. Spleen: No significant abnormality. Upper GI tract: No significant abnormality. Lymph Nodes: No significant adenopathy. Aorta: No significant abnormality. Additional Findings: No significant abnormality. PELVIS: Colon: No significant abnormality. Urinary Bladder and Distal Ureters: No significant abnormality. Appendix: No significant abnormality. Lymph Nodes: No significant adenopathy. Additional Findings: None. IMPRESSION: 1. Within the limitations of non contrast technique, no acute process in the abdomen or pelvis. 2. Incidental findings, as above. Signer Name: Galindo Modi MD Signed: 11/08/2021 1:31 PM Workstation Name: [id number]
== END 2021-11-08 12:35 | disposition home or self-care (01) ==
LOC: CT 12:34
PROVIDERS: ATTEND Urology
DX: R31.0 Gross hematuria (principal); N30.11 Interstitial cystitis (chronic) with hematuria
CPT/HCPCS: 74176